=== PATIENT | female | born 1965 | race Caucasian/White ===

== ENCOUNTER 2025-02-03 19:58 | Inpatient (IN) | payer BC, SELFPAY ==
[2025-02-03 15:56] VITALS: BP 156/66
[2025-02-03 16:36] VITALS: BMI 31.7
--- NOTE | 2025-02-03 16:52 | ED.GENMED ---
History of Present Illness
General
Chief Complaint: Abdominal Pain
Source: patient
Exam Limitations: none
Time Seen by Provider: 02/03/25 16:38
Nursing documentation reviewed up to this point in time: agreed with
History of Present Illness
History of Present Illness:
Patient presents to ED secondary to persistent nausea, vomiting, and diarrhea, associated with lower abdominal pain upon waking up this morning. Patient states that initial bowel movement consisted of small pellets, but progressively has become
loose with bloody components, including blood clots. Abdominal pain described as sharp/crampy, without any alleviating or exacerbating factors. Patient reports having had at least 20 bowel movements prior to arrival. Denies recent illness.
Denies recent change in medications or diet. Denies sick contact. Denies recent travel. Patient does not drink alcohol. Patient does smoke daily. Denies previous history of similar symptoms. Patient reports having received normal colonoscopy 3
years ago.
Past History
Past History
ED Past Medical History: Other (Pulmonary embolism, peptic ulcer disease)
ED Past Surgical History: Appendectomy, Orthopedic and Other
Social History
Tobacco: Non-smoker
Alcohol: None
Drug: None
Personal:
Living: with family
Employment: Employed
Review of Systems
Review of Systems
Allergies reviewed?: Yes
All Other Systems: ROS reviewed and negative except as documented in HPI and ROS
Constitutional: Reports no symptoms; Denies fever or chills
Respiratory: Reports no symptoms
Cardiac: Reports no symptoms
ABD/GI: Reports abdominal pain, nausea, vomiting, diarrhea and bloody stools
Musculoskeletal: Reports no symptoms
Skin: Reports no symptoms
Neurological: Reports no symptoms
Phy Exam
Physical Exam
Physical Exam:
Physical Exam
General: mild distress, not acutely ill. afebrile
Head: nc/at. eomi
Neck: supple. normal range of motion.
Heart: s1/s2 regular rate and rhythm
Lungs: no acute respiratory distress. clear bilaterally
Abdomen: normal bowel sounds. mild LLQ/suprapubic tenderness to palpation. Rectal exam (KEANU Rodriguez, at bedside): small quantity of stool, with blood clots, heme positive
Neuro: alert and oriented x 3. no focal neurological deficits
Skin: no rash
Psychiatric: well kept. interactive and cooperative
Extremities: no edema. no calf tenderness.
Course
Orders/Labs/Results
Orders:
Orders
02/03/25 16:47
CMP [Comprehensive Metabolic Panel] Urgent
Complete Blood Count/With Diff Urgent
Lipase Urgent
02/03/25 16:50
0.9% Sodium Chloride 1000 ml [Nss] 1,000 ml IV BOLUS
Morphine Sulfate 2 mg IV NOW STA
Ondansetron Injectable [Zofran] 4 mg IV NOW STA
Pantoprazole [Protonix IV] 40 mg IV NOW STA
02/03/25 16:53
Type+Screen Urgent
Lactate Level [Lactic Acid] Urgent
02/03/25 17:05
C difficile Antigen & Toxins Urgent
SERGIO Source: ST
Specimen Description:
Date Specimen was Collected: 02/03/25
Time Specimen was Collected: 16:58
Stool Culture Urgent
SERGIO Source: Feces/Stool
Specimen Description:
Date Specimen was Collected: 02/03/25
Time Specimen was Collected: 16:58
02/03/25 17:34
Add On - Microbiology Urgent
Tests Added?: c.dif toxin
02/03/25 17:55
CT Angio Abd/Pelvis w/wo IV [CT Abd/pelvis Angio W/wo Iv] Urgent
Comment:
Reason For Exam: abd pain w rectal bleeding
02/03/25 19:21
LevoFLOXacin 500 MG/100 ML [Levaquin] 500 mg in 100 ml IV NOW
MetroNIDAZOLE 500 MG/100 ML [Flagyl 500 mg] 100 ml IV NOW
02/03/25 19:39
Admit/Transfer Patient As Directed
Co-Sign Provider:
Level of Care: Inpatient admission
Assign to:: Medical/Surgical
Physician / Group: Cal Hernandez
Diagnosis: Colitis with bloody diarrhea
Reason for Hospitalization: Colitis with bloody diarrhea
Expected length of stay greater than two midnights?: Yes
ELOS- Estimated Length of Stay in days: 2
I certify the patient meets the requirements for IP care: Yes
02/03/25 19:40
Code Status As Directed
Resuscitation Status: Full Code
02/03/25 19:51
Ondansetron Injectable [Zofran] 4 mg IV Q6HPRN PRN
02/03/25 20:00
0.9% Sodium Chloride 500 ml [Nss] 500 ml IV 100 mls/hr
02/03/25 20:40
0.45% Sodium Chloride 1000 ml [0.45%NaCl] 1,000 ml IV 75 mls/hr
Bisacodyl [Dulcolax] 10 mg RECTAL [id number] PRN
Docusate W/Senna [Senokot-S] 1 tablet PO BIDPRN PRN
Oxycodone/Acetaminophen [Percocet 5/325] 1 tablet PO Q6HPRN PRN pain
Polyethylene Glycol Powder [Miralax] 17 grams PO DAILYPRN PRN
02/03/25 20:40
Activity As Directed
Activity Level: As Tolerated
Venous Foot Pumps As Directed
Location: Bilateral feet
Vital Signs As Directed
Frequency: Per unit guidelines
DX Deep Vein Thrombosis Video Routine
02/03/25 20:49
Sumatriptan Succinate [Imitrex] 100 mg PO DAILYPRN PRN
02/03/25 22:38
Lactic Acid Q4H
Comment: until <2
02/04/25 Breakfast
Clear Liquid
At Your Request: Full Participation
Does patient need a safe tray?: No
02/04/25 08:00
Pantoprazole [Protonix] 40 mg PO DAILY
02/04/25 08:27
Basic Metabolic Panel IN AM
CRP [C-Reactive Protein] IN AM
Complete Blood Count/No Diff IN AM
ESR [Erythrocyte Sed Rate] IN AM
TSH IN AM
02/04/25 20:00
LevoFLOXacin 500 MG/100 ML [Levaquin] 500 mg in 100 ml IV Q24H
Abnormal Lab Results
02/03/25 02/03/25
16:47 16:53
WBC 13.6 H 10^3/uL
(4.8-10.8)
MCH 26.9 L pg
(27.0-31.0)
MCHC 32.4 L g/dL
(33.0-37.0)
Abs Immat Gran (auto) 0.1 H 10^3/uL
(0-0.05)
Absolute Neuts (auto) 12.4 H 10^3/uL
(1.4-6.5)
Absolute Lymphs (auto) 0.9 L 10^3/uL
(1.2-3.4)
Neutrophils % 91.0 H %
(42.2-75.2)
Lymphocytes % 6.3 L %
(20.5-51.1)
Chloride 108 H mmol/L
(98-107)
Glucose 133 H mg/dl
(70-99)
Lactic Acid 2.9 H mmol/L
(0.7-2.0)
02/03/25 16:47
02/03/25 16:47
Vital Signs
Initial and Last Documented VS:
Initial Vital Signs
Temp Pulse Resp BP Pulse Ox
98.6 F 64 20 156/66 100
02/03/25 15:56 02/03/25 15:56 02/03/25 15:56 02/03/25 15:56 02/03/25 15:56
Last Documented Vital Signs
Temp Pulse Resp BP Pulse Ox
98.4 F 54 16 119/52 96
02/05/25 06:00 02/05/25 06:00 02/05/25 06:00 02/05/25 06:00 02/05/25 06:00
MDM/Problems Addressed
MDM/Problems Addressed:
Elevated lactate noted. CT angiogram abdomen pelvis ordered. Otherwise, patient remains afebrile, hemodynamically stable, along with improvement in symptoms after treatment.
CT abdomen pelvis report reviewed and discussed with patient, consistent with diffuse colitis. In light of patient's continual episodes of diarrhea, patient will be admitted for further evaluation and treatment, including IV antibiotics.
C. difficile toxin negative. Stool culture pending.
*Pulse Oximetry
SaO2: 100
Oxygen Mode of Delivery: Room air
Patient hypoxic: no
*Critical Care Note
Total Time (30-74mins, 75-104mins- exclusive of procedures): Not Applicable
ED Attending Note
-
Portions of this chart may have been created with voice recognition software.� Occasional wrong word or��sound alike� substitutions may have occurred due to the inherent limitations of voice recognition software.
Discharge Plan
Departure
Patient Disposition: Admit
Date of Disposition: 02/03/25
Time of Disposition: 19:26
Admit to: Telemetry
Presentation/result/management discussed w/ accepting MD/DO: Hospitalist
Discharge Problem:
Rectal bleeding, Colitis
Interventions
Interventions:
*Risk Screen - Suicide Last Done: 02/03/25 15:56
*General Assessment Last Done: 02/03/25 15:56
*Neglect/Abuse Screening Last Done: 02/03/25 15:56
*ED COVID-19 Vaccine History Last Done: 02/03/25 15:56
*ED Influenza Vaccine History Last Done: 02/03/25 15:56
[facility] Fall Risk Assessment Tool Last Done: 02/03/25 16:36
*Nursing Disposition Last Done: 02/03/25 20:35
WP-Yxklxr-Rkymzflipt Assessment Last Done: 02/03/25 16:36
Discharge Date and Time
Discharge Date/Time: 02/03/25 20:36
[2025-02-03 16:59] LABS: Hematocrit 41.7 % (37.0-47.0); Hemoglobin 13.5 g/dL (12.0-16.0); Mean Corp Hgb Conc. 32.4 g/dL (33.0-37.0); Mean Corpuscular Volume 83.2 fL (81.0-99.0); Nucleated Red Blood Cells % 0 %; Platelet Count 294 10^3/uL (130-400); Red Cell Dist. Width 13.9 % (11.5-14.5)
[2025-02-03] MEDS: PROTONIX IV 40 MG IV (17:12)
[2025-02-03] MEDS: NSS 1000 IV (17:12)
[2025-02-03] MEDS: MORPHINE SULFATE 2 MG IV (17:12)
[2025-02-03 17:13] LABS: ALT (SGPT) 18 U/L (0-35); AST (SGOT) 22 U/L (14-36); Albumin 4.1 g/dl (3.5-5.0); Alkaline Phosphatase 95 U/L (38-126); Blood Urea Nitrogen 13 mg/dl (7-17); Calcium 9.2 mg/dl (8.4-10.2); Carbon Dioxide 28 mmol/L (22-30); Chloride 108 mmol/L (98-107); Estimated Creatinine Clearance 72 ml/min; Glucose 133 mg/dl (70-99); Lipase 32 U/L (23-300); Potassium 4.7 mmol/L (3.5-5.1); Sodium 137 mmol/L (135-145); Total Protein 6.7 g/dl (6.3-8.2); eGFR > 60.00
[2025-02-03] MEDS: ZOFRAN 4 MG IV (17:13)
[2025-02-03] MEDS: LEVAQUIN 100 IV (19:29)
[2025-02-03] MEDS: NSS 500 IV (19:30)
--- NOTE | 2025-02-03 19:50 | HPS.HSE ---
Family Physician
-
Family Physician: Grayson Blue
Chief Complaint
-
abdominal pain
History of Present Illness
59 female history of GERD, endometriosis, rheumatoid arthritis, migraines, hld off statin who presents with acute onset abdominal pain that began this morning upon waking up. Lower abdominal radiating up to mid stomach region, that is constant and
sharp not relieving associated with multiple bouts of vomiting and watery bloody diarrhea. Last emesis and bloody diarrhea was from 6 PM today after receiving Zofran and PPI.
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 Did eat from a restaurant at a luncheon with solid and [employer]/meats. For dinner had canned chicken with half a coslaw.
Last c-scope 3 years ago with polyps.
Medical History
Past Medical History
Past Medical History: Reports GERD, Hypercholesterolemia and Hypothyroidism
Past Surgical History: Reports Appendectomy and Orthopedic
Additional Past Surgical History:
spinal fusion
carpal tunnel
Social History
Tobacco: Smoker (1/2 pack)
Alcohol: None
Drug: None
Family History
Family History: CAD, Cancer and Diabetes
Allergies / Home Medications
Allergies reflects when Allergies were last updated in [facility].
Home Medications with original date entered in [facility]
Allergy/Medication List:
Allergies
Allergy/AdvReac Type Severity Reaction Status Date / Time
leuprolide (From Lupron) Allergy Hives Verified 02/03/25 16:03
meperidine (From Demerol) Allergy Rash Verified 02/03/25 16:03
Penicillins Allergy Rash Verified 02/03/25 16:03
sulfamethoxazole (From Allergy Hives Verified 02/03/25 16:03
Bactrim)
trimethoprim (From Bactrim) Allergy Hives Verified 02/03/25 16:03
Home Medications
omeprazole 40 mg capsule,delayed release 40 mg PO DAILY 02/03/25
oxycodone-acetaminophen 5 mg-325 mg tablet 1 tab PO Q6HPRN PRN pain 02/03/25
sumatriptan succinate 100 mg tablet 100 mg PO DAILYPRN PRN migraine headache 02/03/25
Review of Systems
-
A 12 point ROS was completed and negative except as noted: Yes
Physical Exam
Vital Signs
Vital Signs
Temp Pulse Resp BP Pulse Ox
98.6 F 64 20 156/66 100
02/03/25 15:56 02/03/25 15:56 02/03/25 15:56 02/03/25 15:56 02/03/25 16:55
Physical Exam
General: Well Developed, Well Nourished and No Apparent Distress
HEENT: NormoCephalic and Anicteric
Respiratory: Clear; No Wheezes, Rales or Rhonchi
Cardiac: S1/S2 and Regular Rhythm
GI: Soft, Non Distended, Normal Bowel Sounds and Tender (LLL and RUQ); No Non Tender
Musculoskeletal: No Clubbing and No Cyanosis
Neuro: Awake and AO x 3
Psych: Calm
Laboratory Results
-
02/03/25 16:47
02/03/25 16:47
Laboratory Results
Lactic Acid 2.9 mmol/L (0.7-2.0) H 02/03/25 16:53
Total Bilirubin 0.4 mg/dl (0.2-1.3) 02/03/25 16:47
AST 22 U/L (14-36) 02/03/25 16:47
ALT 18 U/L (0-35) 02/03/25 16:47
Alkaline Phosphatase 95 U/L (38-126) 02/03/25 16:47
Lipase 32 U/L (23-300) 02/03/25 16:47
Impression/Plan
-
Colitis with bloody diarrhea
Infectious versus food poisoning versus inflammatory versus ischemic bowel due to elevated lactate though without evidence of this on CT however suspecting/likely the former
IVF
IVAtb with Levo/Metro
Stool cultures pending
Cdiff neg
ESR/CRP for the AM
CLD
ADAT
Antiemetics
Trend hgb
Transfuse <7
GI Consult
Lactic acidosis likely Type B due to lack of end organ damage
Trend until less then <2
IVF with .45
Gerd
PPI
Hypothyroidism
Has been off levothyroxine due to lack of pcp follow up
Check TFT
Chronic pain due to work related orthopedic trauma resulting in spinal fusions
Percocet prn
Migraine hx
Imitrex prn
[2025-02-03 20:43] VITALS: BP 123/63; BMI 31.0
[2025-02-03] MEDS: 0.45%NACL 1000 IV (20:59)
[2025-02-03] MEDS: FLAGYL 500 MG 100 IV (20:59)
[2025-02-03 22:44] VITALS: BP 118/58
[2025-02-03] MEDS: MORPHINE SULFATE 1 MG IV (23:10)
[2025-02-04] MEDS: PROTONIX 40 MG PO (07:39)
[2025-02-04] MEDS: PERCOCET 5/325 1 TABLET PO (07:47)
--- NOTE | 2025-02-04 07:54 | CON.GI ---
Consultation
-
Date/Time Consultation Performed: 02/04/25
Performing Provider: Phoenix Ramirez MD
Reason for Consultation: colitis
Medical History
Chief Complaint / HPI
Chief Complaint: vomiting, diarrhea
History of Present Illness:
The patient is a 59-year-old female with past medical history as noted with vomiting and diarrhea. She was in her usual state of health when she acutely had vomiting and diarrhea, about every 15 minutes, 20-30 times. She had bloody diarrhea from
the onset, and describes left lower quadrant crampy abdominal pain. She denies any fevers, sick contacts, recent antibiotics. Otherwise has been doing well with no significant GI issues. Her last colonoscopy was around 3 years ago at [facility]
with polyps, though otherwise okay. She has nieces and nephews with inflammatory bowel disease and her mother had rectal cancer. She denies any chest pain or shortness of breath. Overnight she has not had any bowel movements or vomiting and is
overall feeling better with some mild left lower quadrant discomfort.
Past Medical History
Past Medical History: Other (GERD, Hypercholesterolemia and Hypothyroidism)
Past Surgical History: Other (spinal fusion carpal tunnel)
Social History
Tobacco: Smoker
Alcohol: None
Family History
Family History: Other (Inflammatory bowel disease and malignancy as described above)
Allergies / Home Medications
Allergy/AdvReac Type Severity Reaction Status Date / Time
leuprolide (From Lupron) Allergy Hives Verified 02/03/25 16:03
meperidine (From Demerol) Allergy Rash Verified 02/03/25 16:03
Penicillins Allergy Rash Verified 02/03/25 16:03
sulfamethoxazole (From Allergy Hives Verified 02/03/25 16:03
Bactrim)
trimethoprim (From Bactrim) Allergy Hives Verified 02/03/25 16:03
�Medication �Instructions �Recorded
Ambien 10 mg PO PRN sleep 02/03/25
omeprazole 40 mg capsule,delayed 40 mg PO DAILY 02/03/25
release
oxycodone-acetaminophen 5 mg-325 1 tab PO Q6HPRN PRN pain 02/03/25
mg tablet
sumatriptan succinate 100 mg tablet 100 mg PO DAILYPRN PRN migraine 02/03/25
headache
Review of Systems
-
All other systems: A 12 pt ROS was Negative except as stated above in HPI
Vital Signs
Temp Pulse Resp BP Pulse Ox
99.4 F 56 16 118/58 100
02/03/25 22:44 02/03/25 22:44 02/03/25 22:44 02/03/25 22:44 02/03/25 22:44
Physical Exam
Exam
General: NAD
HEENT: MMM, anicteric, no lymphadenopathy
Heart: Regular, no murmurs
Lungs: CTA bilaterally
Abdomen: normal bowel sounds, soft, mild left lower quadrant tenderness, no rebound or guarding, no masses, bruits or ascites
Extremeties: no edema
Skin: no rashes
Results
WBC 13.6 10^3/uL (4.8-10.8) H 02/03/25 16:47
Hgb 13.5 g/dL (12.0-16.0) 02/03/25 16:47
Hct 41.7 % (37.0-47.0) 02/03/25 16:47
MCV 83.2 fL (81.0-99.0) 02/03/25 16:47
Plt Count 294 10^3/uL (130-400) 02/03/25 16:47
Absolute Neuts (auto) 12.4 10^3/uL (1.4-6.5) H 02/03/25 16:47
Sodium 137 mmol/L (135-145) 02/03/25 16:47
Potassium 4.7 mmol/L (3.5-5.1) 02/03/25 16:47
Chloride 108 mmol/L (98-107) H 02/03/25 16:47
Carbon Dioxide 28 mmol/L (22-30) 02/03/25 16:47
BUN 13 mg/dl (7-17) 02/03/25 16:47
Creatinine 0.8 mg/dL (0.6-1.0) 02/03/25 16:47
Calcium 9.2 mg/dl (8.4-10.2) 02/03/25 16:47
Total Bilirubin 0.4 mg/dl (0.2-1.3) 02/03/25 16:47
AST 22 U/L (14-36) 02/03/25 16:47
ALT 18 U/L (0-35) 02/03/25 16:47
Alkaline Phosphatase 95 U/L (38-126) 02/03/25 16:47
Lipase 32 U/L (23-300) 02/03/25 16:47
Diagnostic Image Results:
CT:
IMPRESSION: CT findings compatible with diffuse colitis, greatest involvement at the junction of the sigmoid colon and distal descending colon. Most likely this represents infectious colitis. Main differential consideration of inflammatory bowel
disease.
No evidence for free intraperitoneal air.
There is no CT angiographic evidence for active GI bleeding.
Fatty infiltration of the liver with mild focal sparing adjacent to gallbladder fossa.
4.3 cm enhancing fibroid arising in the inferior aspect of the uterus, slightly compressing the superior wall the urinary bladder.
Bony degenerative changes as described.
Prior GI Procedures:
EGD:
Colonoscopy:
Assessment / Plan
-
1. Vomiting/diarrhea: Acute, most consistent with infectious enterocolitis, with left-sided colitis noted on CT scan and bloody diarrhea initially. At this point she is improving, with no further vomiting or diarrhea, has been hemodynamically
stable, and exam is benign. Will continue antibiotics as she is improved on this, continue IV fluids, supportive care and clear liquid diet for now. Will await stool studies as ordered. If her symptoms are improving could advance to low residue
diet tonight. Will plan follow-up in the office in 2 months, consider outpatient colonoscopy in the future after review of her previous records, though other etiologies including inflammatory bowel disease or malignancy seem very unlikely.
-
-
Thank you for consultation and allowing me to participate in the patient's care. Please call the consulting psychiatrist GI physician during the after hours with any questions or concerns.
[2025-02-04 08:10] VITALS: BP 132/51
[2025-02-04 08:47] LABS: Hematocrit 36.8 % (37.0-47.0); Hemoglobin 12.1 g/dL (12.0-16.0); Mean Corp Hgb Conc. 32.9 g/dL (33.0-37.0); Mean Corpuscular Volume 84.2 fL (81.0-99.0); Platelet Count 259 10^3/uL (130-400); Red Cell Dist. Width 14.0 % (11.5-14.5)
[2025-02-04 09:28] LABS: C-Reactive Protein 14.30 mg/L (0.0-10.00)
[2025-02-04 09:30] LABS: Blood Urea Nitrogen 10 mg/dl (7-17); Calcium 8.5 mg/dl (8.4-10.2); Carbon Dioxide 24 mmol/L (22-30); Chloride 110 mmol/L (98-107); Estimated Creatinine Clearance 71 ml/min; Glucose 101 mg/dl (70-99); Potassium 4.1 mmol/L (3.5-5.1); Sodium 136 mmol/L (135-145); eGFR > 60.00
--- NOTE | 2025-02-04 09:52 | W.PN.HOSP.TC ---
Today's Communication/Plan
-
.
Assessment / Plan
Assessment / Plan
Physical Exam
General: Well Developed, Well Nourished and No Apparent Distress
HEENT: Normocephalic and Anicteric
Respiratory: Clear; No Wheezes, Rales or Rhonchi
Cardiac: S1/S2 and Regular Rhythm
GI: Soft, mildly Distended, Normal Bowel Sounds and Tender (LLL and RUQ).
Musculoskeletal: No Clubbing and No Cyanosis
Neuro: Awake and AO x 3. Gait is normal. Non-focal.
Psych: Calm
A/p:
# Acute Colitis with bloody diarrhea/ lactic acidosis.
Infectious versus food poisoning versus inflammatory versus ischemic bowel due to elevated lactate though without evidence of this on CT however suspecting/likely the former
c/w bowel rest, ok for clears
c/w pain control. Oxy did not help, will add IV Dilaudid ( d/w pt herself)
c/w mild IVF and dc if tolerates liquids
WBC is normal now. Lactic acid is normal now
Afebrile
IV ABx with Levo/Metro
Stool cultures pending
C Diff neg
ESR is pending
CRP is elevated.
Appreciate GI help.
Gerd
PPI
Hypothyroidism
Has been off levothyroxine due to lack of pcp follow up
Normal TSH
Chronic pain syndrome with opioid dependency
History of orthopedic trauma resulting in spinal fusions
Percocet prn at home.
Migraine hx
Imitrex prn
Total time spent to see the patient, examined the patient, reviewed data and lab result, discuss treatment plan with patient, GI doctor, nursing staff around 55 minutes
Anticipated Discharge: 24 - 48 hours
Subjective/Interval History
-
Date of Service: February 04, 2025
No chest pain
Still abdominal pain, oxycodone is not help, would like to try IV pain medicine
Objective Data
-
Labs:
Laboratory Results
02/04/25
08:27
WBC 9.0
Hgb 12.1
Hct 36.8 L
Plt Count 259
Sodium 136
Potassium 4.1
Chloride 110 H
Carbon Dioxide 24
BUN 10
Creatinine 0.8
Glucose 101 H
Calcium 8.5
Vital Signs:
Vital Signs
Temp Pulse Resp BP Pulse Ox
98.9 F 61 16 132/51 98
02/04/25 08:10 02/04/25 08:10 02/04/25 08:10 02/04/25 08:10 02/04/25 08:10
[2025-02-04] MEDS: DILAUDID 1 MG IV ×2 (09:54→20:12)
[2025-02-04 09:59] LABS: TSH 1.21 uIU/ml (0.47-4.68)
--- NOTE | 2025-02-04 10:25 | CM ---
Patient seen bedside.
IA completed.
Patient lives [place] 2 story home
Independent prior to admission without AD .
Patient currently employed as a pediatric nurse.
Denies home care needs at this time.
Denies insecurities.
Patient has transportation home.
PCP: Dr lBue
Pharmacy: [facility]
Plan: home no needs once medically stable.
[2025-02-04] MEDS: 0.45%NACL 1000 IV (12:20)
[2025-02-04 16:15] VITALS: BP 111/66
[2025-02-04] MEDS: LEVAQUIN 100 IV (20:08)
[2025-02-04] MEDS: BENTYL 10 MG PO (20:12)
[2025-02-04] MEDS: TYLENOL 650 MG PO (23:02)
[2025-02-04 23:30] VITALS: BP 102/49
[2025-02-05 06:00] VITALS: BP 119/52
[2025-02-05] MEDS: 0.45%NACL IV (06:39)
--- NOTE | 2025-02-05 07:02 | W.PN.GI.CBS2 ---
Today's Communication / Plan
-
Please see assessment and plan for details.
Assessment / Plan
-
1. Vomiting/diarrhea: Acute, most consistent with infectious enterocolitis, with left-sided colitis noted on CT scan and bloody diarrhea initially. At this point she is much improved, tolerating diet, labs stable, no significant bleeding
overnight. We discussed would be expected to have some old blood on the next bowel movement or to. At this point she is okay to DC from a GI standpoint, without antibiotics. We will follow-up in the office in 6 weeks.
We will sign off for now, please call back with any further questions.
Subjective
Subjective
Date of Service: February 05, 2025
Patient feeling much better overall, 1 soft bowel movement yesterday, none overnight, much improved pain, no nausea or vomiting, tolerated diet without difficulty.
Objective
Data Reviewed
Laboratory Data:
Laboratory Results
02/04/25 08:27
02/04/25 08:27
Laboratory Results
Total Bilirubin 0.4 mg/dl (0.2-1.3) 02/03/25 16:47
AST 22 U/L (14-36) 02/03/25 16:47
ALT 18 U/L (0-35) 02/03/25 16:47
Alkaline Phosphatase 95 U/L (38-126) 02/03/25 16:47
Lipase 32 U/L (23-300) 02/03/25 16:47
Vital Signs and I&O:
Vital Signs
Temp Pulse Resp BP Pulse Ox
99.0 F 68 18 102/49 94
02/04/25 23:30 02/04/25 23:30 02/04/25 23:30 02/04/25 23:30 02/04/25 23:30
I&O
02/04/25 02/05/25 02/06/25
06:59 06:59 06:59
Intake Total 840 / 840
Balance
Physical Exam
Physical Exam
General: NAD
Abdomen: normal bowel sounds, soft, minimal left lower quadrant tenderness, no masses or bruits, no ascites
[2025-02-05] MEDS: PROTONIX 40 MG PO (08:29)
[2025-02-05] MEDS: BENTYL 10 MG PO (08:30)
[2025-02-05] MEDS: DILAUDID 1 MG IV (08:30)
[2025-02-05] MEDS: 0.45%NACL 1000 IV (08:30)
--- NOTE | 2025-02-05 09:04 | W.PN.HOSP.TC ---
Today's Communication/Plan
-
dc
Assessment / Plan
Assessment / Plan
Physical Exam
General: Well Developed, Well Nourished and No Apparent Distress
HEENT: Normocephalic and Anicteric
Respiratory: Clear; No Wheezes, Rales or Rhonchi
Cardiac: S1/S2 and Regular Rhythm
GI: Soft, not Distended, Normal Bowel Sounds and not tender.
Musculoskeletal: No Clubbing and No Cyanosis
Neuro: Awake and AO x 3. Gait is normal. Non-focal.
Psych: Calm
A/p:
# Acute Colitis with bloody diarrhea/ lactic acidosis.
Infectious versus food poisoning versus inflammatory versus ischemic bowel due to elevated lactate though without evidence of this on CT however suspecting/likely the former
s/p bowel rest, tolerated LRD
c/w pain control. She takes 4 times percocet at home, she has tolerance to pain medications. ID Dilaudid helped, she requested script for breakthrough pain. Bentyl also helped.
s/p IVF
WBC is normal now. Lactic acid is normal now
Afebrile
IV ABx with Levo/Metro, no need to continue.
C Diff neg
ESR is normal.
CRP is elevated.
Appreciate GI help.
Per GI: Acute, most consistent with infectious enterocolitis, with left-sided colitis noted on CT scan and bloody diarrhea initially. At this point she is much improved, tolerating diet, labs stable, no significant bleeding overnight. We discussed
would be expected to have some old blood on the next bowel movement or to. At this point she is okay to DC from a GI standpoint, without antibiotics. We will follow-up in the office in 6 weeks.
Gerd
PPI
Hypothyroidism
Has been off levothyroxine due to lack of pcp follow up
Normal TSH
Chronic pain syndrome with opioid dependency
History of orthopedic trauma resulting in spinal fusions
Percocet ( she take sit 4 times a day per patient).
Migraine hx
Imitrex prn
Given script for off work until 02/09
Total discharge time spent to see the patient, examined the patient, reviewed data and lab result, discuss discharge plan with patient, nursing staff around 67 minutes
Anticipated Discharge: Today
Subjective/Interval History
-
Date of Service: February 05, 2025
Feels better
Less abdominal pain but feels sometimes burning
Tolerated diet, no nausea.
Objective Data
-
Vital Signs:
Vital Signs
Temp Pulse Resp BP Pulse Ox
98.4 F 54 16 119/52 96
02/05/25 06:00 02/05/25 06:00 02/05/25 06:00 02/05/25 06:00 02/05/25 06:00
I&O
02/04/25 02/05/25 02/06/25
06:59 06:59 06:59
Intake Total 840 / 840
Balance 840 / 840
--- NOTE | 2025-02-05 10:18 | PTCARENOTE ---
Patient for discharge to home. Discharge instructions reviewed with patient. Low residue diet handout provided. IV removed. Patient being picked up by friend.
--- NOTE | 2025-02-05 10:53 | PTCARENOTE ---
8 am vital signs on 02/05/25 were as follows: 98.4F, 54 HR, 16 RR, 119/52, 96% on room air
--- NOTE | 2025-02-05 15:29 | W.DCSUMMARY ---
Discharge Summary
Discharge Data
Date of Admission: 02/03/25
Date of Discharge: 02/05/25
-
Pending Results: No
Hospital Course
59 years old female presented with vomiting and diarrhea. Her symptoms were sudden in onset. She had bloody diarrhea with left lower quadrant crampy abdominal pain. She denied any fevers, sick contacts, recent antibiotics. Last colonoscopy was
around 3 years ago at [place] with polyps, though otherwise okay. She denied any chest pain or shortness of breath. She had CT of abdomen and pelvis findings compatible with diffuse colitis, greatest involvement at the junction of the sigmoid colon
and distal descending colon, most likely this represented infectious colitis, no evidence for free intraperitoneal air, there was no CT angiographic evidence for active GI bleeding. Blood work showed leukocytosis, positive lactic acidosis. She was
diagnosed with acute colitis. She received intravenous fluid and intravenous antibiotics. C. difficile test came back negative. Stool testing for microbes came back negative. ESR was normal and CRP mildly elevated. She was evaluated by GI
doctor. Recommendation to continue supportive care. She subsequently improved and started to tolerate diet. White blood count normalized. She remained afebrile. Patient has history of chronic pain syndrome with narcotic dependency. She
required intravenous Dilaudid to help with pain control. GI doctor followed the patient and did not recommend to continue antibiotic. GI recommended outpatient follow-up. She remained hemodynamically stable. She was able to ambulate
independently. She was discharged home in stable condition.
Discharge Plan
-
Patient Disposition: Home (Routine Discharge)
Discharge Diagnosis/Procedures: Vomiting/diarrhea due to Acute, most consistent with infectious enterocolitis, with left-sided colitis noted on CT scan and bloody diarrhea initially.
You were seen by GI doctor. Recommended outpatient follow-up.
Continue low residue diet for 5 days. Follow-up with your primary care doctor.
You were given prescription for oral Dilaudid to use only for severe breakthrough pain. Also prescription for Bentyl for abdominal cramps/pain. Prescription for Zofran to use for nausea/vomiting.
Condition: Good
Diet: Low Residue
Referrals:
Lonnie Ramirez MD [Active, Gastroenterology] - 03/20/25 12:00 pm
Grayson Blue PA [Family Provider, General] - in one week
Prescriptions:
New
dicyclomine 10 mg Capsule
10 mg PO QIDPRN PRN (Reason: abdominal pain) Qty: 10 0RF
hydromorphone [Dilaudid] 2 mg tablet
2 mg PO BIDPRN PRN (Reason: Severe breakthrough pain) Qty: 5 0RF
ondansetron HCl 4 mg tablet
4 mg PO Q8H PRN (Reason: nausea and vomiting) Qty: 10 0RF
Continued
sumatriptan succinate 100 mg tablet
100 mg PO DAILYPRN PRN (Reason: migraine headache)
omeprazole 40 mg Capsule,Delayed Release(Dr/Ec)
40 mg PO DAILY
oxycodone-acetaminophen 5-325 mg tablet
1 tab PO Q6HPRN PRN (Reason: pain)
Ambien 10 mg
10 mg PO PRN (Reason: sleep)
Discharge Orders:
Discharge Patient (As Directed); Ordered 02/05/25
Ordered By: Savage Mcgarry
Discharge Date and Time
Discharge Date/Time: 02/05/25 10:36
Print Language: INDIAN
== END 2025-02-05 10:36 | disposition home or self-care (01) | DRG 392 ==
LOC: 4 WEST ACU 19:58
PROVIDERS: ADMITTING PHYSICIAN Hospitalist; ATTENDING PHYSICIAN Internal Medicine; CONSULT PHYSICIAN Internal Medicine Gastroenterology; EMERGENCY PHYSICIAN Emergency Medicine; FAMILY PHYSICIAN Physician Assistant
DX: A09 Infectious gastroenteritis and colitis, unspecified (principal); K51.511 Left sided colitis with rectal bleeding; E87.20 Acidosis, unspecified; F11.20 Opioid dependence, uncomplicated; F17.200 Nicotine dependence, unspecified, uncomplicated; K21.9 Gastro-esophageal reflux disease without esophagitis; E03.9 Hypothyroidism, unspecified; G89.4 Chronic pain syndrome; M06.9 Rheumatoid arthritis, unspecified; Z79.899 Other long term (current) drug therapy
CPT/HCPCS: 74174; 80048; 80053; 83605; 83690; 84443; 85025; 85027; 85652; 86140; 86850; 86900; 86901; 87045; 87046; 87324; 87427; 87449; 96361; 96365; 96375; 99285; 99406; Q9967